=== PATIENT | female | born 2000 | race American Indian/Alaskan Native ===

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

== ENCOUNTER 2023-06-18 05:24 | Inpatient (IN) | payer BC ==
[2023-06-18] MEDS ORDERED: Misoprostol 25 MCG (1/4 of 100 MCG) Tab VAG PRN ×2 (05:42)
[2023-06-18] MEDS ORDERED: Water For Irrigation,Sterile 1,000 ML Container IRR PRN (05:42)
[2023-06-18] MEDS ORDERED: Misoprostol 200 MCG Tab PO PRN (05:42)
[2023-06-18] MEDS ORDERED: Sodium Chloride 0.9% 20 ML SDV IV PRN (05:42)
[2023-06-18] MEDS ORDERED: Sodium Chloride 0.9% 10 ML Syringe FLUSH PRN (05:42)
[2023-06-18] MEDS ORDERED: Methylergonovine 0.2 MG/1 ML Amp IM PRN ×2 (05:42→17:41)
[2023-06-18] MEDS ORDERED: Ondansetron 4 MG/2 ML SDV IVPUSH PRN (05:42)
[2023-06-18] MEDS ORDERED: Lidocaine 1% 50 ML MDV INJECT PRN (05:42)
[2023-06-18] MEDS ORDERED: Tranexamic Acid 1,000 MG in Sodium Chloride 0.9% 100 ML IV PRN ×2 (05:42→17:41)
[2023-06-18] MEDS ORDERED: Carboprost Tromethamine 250 MCG/1 mL Vial IM PRN (05:42)
[2023-06-18] MEDS ORDERED: Terbutaline 1 MG/ML SDV SUBCUT PRN (05:42)
[2023-06-18] MEDS ORDERED: Sodium Chloride 0.9% 2.5 ML Syringe FLUSH PRN (05:42)
[2023-06-18] MEDS ORDERED: Oxytocin/0.9 % Sodium Chloride 30 UNIT/500 ML BAG IV SCH ×2 (05:45)
[2023-06-18] MEDS: Lactated Ringers 1,000 ML IV SCH ×3 (06:30→15:27)
[2023-06-18 06:46] LABS: HEMATOCRIT 34.2 % (36.0-46.0); HEMOGLOBIN 10.9 g/dL (12.0-16.0); MEAN CORPUSCULAR HEMOGLOBIN 26.7 pg (27.0-32.0); MEAN CORPUSCULAR HGB CONC 31.9 g/dL (31.0-37.0); MEAN CORPUSCULAR VOLUME 83.6 fL (80.0-98.0); MEAN PLATELET VOLUME 8.7 fL (7.40-12.00); RED BLOOD CELL COUNT 4.09 M/uL (4.30-5.90); WHITE BLOOD CELL COUNT,WBC 7.92 K/uL (4.0-11.0)
[2023-06-18] MEDS ORDERED: ePHEDrine 50 MG/ML SDV IVPUSH PRN ×2 (07:45)
[2023-06-18] MEDS ORDERED: Phenylephrine HCl 0.5 MG/5 ML AMP IVPUSH PRN (07:45)
[2023-06-18] MEDS ORDERED: Ropivacaine HCl/PF 400 MG in Premix Bag 1 BAG EPIDUR SCH (07:45)
[2023-06-18] MEDS ORDERED: Ropivacaine/PF 400 MG/200 ML PCA ONE (10:12)
[2023-06-18] MEDS ORDERED: Dexmedetomidine 200 MCG/2 ML SDV ONE (10:12)
[2023-06-18] MEDS ORDERED: Lidocaine 2% with EPINEPHrine 1:200,000 20 ML SDV ONE (11:17)
[2023-06-18] MEDS ORDERED: Bisacodyl 10 MG Supp RECTAL PRN (17:41)
[2023-06-18] MEDS ORDERED: Acetaminophen 500 MG Tab PO PRN (17:41)
[2023-06-18] MEDS ORDERED: Ibuprofen 400 MG Tab PO PRN (17:41)
[2023-06-18 17:48] LABS: PH,UMBILICAL ARTERIAL 7.28 (7.18-7.38); PH,UMBILICAL VENOUS 7.341 (7.25-7.45)
[2023-06-18] MEDS: Witch Hazel Medicated Pads 40/Jar TOP PRN (19:11)
[2023-06-18] MEDS: Benzocaine/Menthol 20%-0.5% Spray 78 GM Cannister TOP PRN (19:11)
[2023-06-18] MEDS: Lanolin 100% Cream 7 GM Tube TOP PRN (19:12)
[2023-06-18] MEDS: Acetaminophen 500 MG Tab PO PRN (21:35)
[2023-06-18] MEDS: Ibuprofen 800 MG Tab PO PRN (21:35)
[2023-06-19] MEDS: Acetaminophen 500 MG Tab PO PRN ×3 (05:52→19:12)
[2023-06-19 06:06] LABS: HEMATOCRIT 31.3 % (36.0-46.0); HEMOGLOBIN 10.1 g/dL (12.0-16.0)
[2023-06-19] MEDS: Docusate Sodium 100 MG Cap PO PRN (08:58)
[2023-06-19] MEDS: Prenatal Multivitamin with Calcium/Folic Acid/Iron Tab PO SCH (08:58)
[2023-06-19] MEDS: Ibuprofen 800 MG Tab PO PRN ×2 (09:52→19:13)
[2023-06-19] MEDS: Witch Hazel Medicated Pads 40/Jar TOP PRN (15:33)
[2023-06-19] MEDS: Benzocaine/Menthol 20%-0.5% Spray 78 GM Cannister TOP PRN (16:00)
[2023-06-20] MEDS: Acetaminophen 500 MG Tab PO PRN (01:37)
[2023-06-20] MEDS: Docusate Sodium 100 MG Cap PO PRN ×2 (01:37→09:45)
[2023-06-20] MEDS: Lanolin 100% Cream 7 GM Tube TOP PRN (09:44)
[2023-06-20] MEDS: Prenatal Multivitamin with Calcium/Folic Acid/Iron Tab PO SCH (09:45)
[2023-06-20] MEDS: Ibuprofen 800 MG Tab PO PRN (09:45)
[2023-06-20 09:50] VITALS: BP 133/66; PULSE 89
[2023-06-20] MEDS: Benzocaine/Menthol 20%-0.5% Spray 78 GM Cannister TOP PRN (12:24)
== END 2023-06-20 12:50 | disposition home or self-care (01) | DRG 560 ==
LOC: MW.OBCHECK 05:24 → MW.OB 05:25 → MW.OBCHECK 05:27 → MW.OB 05:28 → OBSVTOIN 17:03 → MW.OB 20:59
PROVIDERS: ADMIT Obstetrics & Gynecology; ATTEND Obstetrics & Gynecology
PROC: 10E0XZZ Delivery of Products of Conception, External Approach (ICD-10-PCS; principal; 2023-06-16)
PROC: 10907ZC Drainage of Amniotic Fluid, Therapeutic from Products of Conception, Via Natural or Artificial Opening (ICD-10-PCS; 2023-06-16)
PROC: 3E033VJ Introduction of Other Hormone into Peripheral Vein, Percutaneous Approach (ICD-10-PCS; 2023-06-16)
PROC: 3E0R3BZ Introduction of Anesthetic Agent into Spinal Canal, Percutaneous Approach (ICD-10-PCS; 2023-06-16)
PROC: 00HU33Z Insertion of Infusion Device into Spinal Canal, Percutaneous Approach (ICD-10-PCS; 2023-06-16)
PROC: 0HQ9XZZ Repair Perineum Skin, External Approach (ICD-10-PCS; 2023-06-16)
DX: O48.0 Post-term pregnancy (principal); O40.3XX0 Polyhydramnios, third trimester, not applicable or unspecified; O99.02 Anemia complicating childbirth; O70.0 First degree perineal laceration during delivery; O76 Abnormality in fetal heart rate and rhythm complicating labor and delivery; D64.9 Anemia, unspecified; Z37.0 Single live birth; Z3A.40 40 weeks gestation of pregnancy
CPT/HCPCS: 01967; 36415; 51702; 59025; 59409; 82803; 85014; 85018; 85027; 86592; 86850; 86900; 86901; A9270-GY; J2590; J2795; J3490; J7120